=== PATIENT | female | born 1955 | race Caucasian/White ===

== ENCOUNTER 2023-02-02 06:04 | Day surgery (SDC) | payer BC, MEDICARE ==
[2023-01-26 16:56] LABS: BASOPHILS # (AUTO) 0.1 X10'3 (0-0.2); BASOPHILS % (AUTO) 0.8 % (0-1); EOSINOPHILS # (AUTO) 0.2 X10'3 (0-0.9); EOSINOPHILS % (AUTO) 2.9 % (0-6); LYMPHOCYTES # (AUTO) 1.5 X10'3 (1.1-4.8); LYMPHOCYTES % (AUTO) 23.1 % (21-51); MEAN CORPUSCULAR HEMOGLOBIN 29.4 PG (27.0-31.0); MEAN CORPUSCULAR HGB CONC 32.9 g/dL (33.0-36.5); MEAN CORPUSCULAR VOLUME 89.4 FL (78-98); MEAN PLATELET VOLUME 8.9 FL (7.4-10.4); MONOCYTES # (AUTO) 0.7 X10'3 (0-0.9); MONOCYTES % (AUTO) 10.4 % (2-12); NEUTROPHILS % (AUTO) 62.8 % (42-75); PRE OP HEMATOCRIT 37.2 % (35.0-45.0); PRE OP HEMOGLOBIN 12.2 g/dL (12.0-16.0); PRE OP PLATELET COUNT 203 X10'3 (140-440); RED BLOOD COUNT 4.16 X10'6 (4.20-5.60); RED CELL DISTRIBUTION WIDTH 14.4 % (11.5-14.5)
[2023-01-26 17:14] LABS: ALBUMIN 3.4 G/DL (3.4-5.0); ALBUMIN/GLOBULIN RATIO 0.9 (1.1-1.5); ALKALINE PHOSPHATASE 107 IU/L (46-116); BLOOD UREA NITROGEN 18 MG/DL (7-18); BUN/CREATININE RATIO 20.9 (10.0-20.0); CALCIUM 9.4 MG/DL (8.5-10.1); CHLORIDE 103 MMOL/L (99-107); CREATININE 0.86 MG/DL (0.40-0.90); PRE OP ALT 23 U/L (30-65); PRE OP ANION GAP 8 (8-16); PRE OP AST 26 U/L (10-37); PRE OP BILIRUB, TOTAL 0.5 MG/DL (0.0-1.0); PRE OP GLUCOSE 88 MG/DL (70-104); PRE OP SODIUM 137 MMOL/L (135-145); TOTAL CARBON DIOXIDE 26.3 MMOL/L (24-32); TOTAL PROTEIN 7.3 G/DL (6.4-8.2); eGFR 66 ML/MIN
[2023-02-02] VITALS (10 sets, daily range): BP systolic 83–125; BP diastolic 37–68; PULSE 59–68; RESP 11–18; TEMP 97.7; O2SAT 96–99
[~2023-02-02] VITALS: Ht 162.6 cm; Wt 105.2 kg
[~2023-02-02 06:04] MED LIST: APIX5TAB3 PO; ASCO500C17 PO; CHOL500050 PO; DOCUMENT DATE & TIME OF BETA-BLOCKER PO ONE; HYDR12.55 PO; INDLA80C PO; LISI10TA27 PO; ZINC50CA2 PO; [UNRECOGNIZED DRUG - CODE] PO; clindamycin 600mg/D5W 50ml 50 ML IV ONE; famotidine 20mg tablet PO ONE; ringers solution, lacted 1,000 ML IV SCH
[2023-02-02] MEDS ORDERED: LIDOcaine 0.5% (5mg/ml) 50ml vial ONE (07:28)
[2023-02-02] MEDS ORDERED: fentaNYL/PF 50MCG/1 ML 2ML syringe ONE (08:24)
[2023-02-02] MEDS ORDERED: midazolam 1 mg/ML 2ml injection ONE (08:25)
[2023-02-02] MEDS ORDERED: BUPIVAcaine/PF 2.5mg/ml (0.25%) 10ml vial IJ ONE (08:30)
[2023-02-02] MEDS ORDERED: BUPIVAcaine/PF 2.5 mg/ml (0.25%) 30ml vial ONE (08:42)
--- NOTE | 2023-02-02 08:50 | NUR ---
PT ARRIVED TO [facility] VIA [facility] ACCOMPANIED BY DR. SERRA-ANESTHESIA REPORT GIVEN, PT AWAKE AND ALERT, DENIES PAIN, VSS, DRSG TO LEFT HAND-CDI WITH FINGERS PINK AND WARM.
--- NOTE | 2023-02-02 10:50 | NUR ---
PT DOING WELL, VSS, DENIES PAIN, PT UP AND GETTING DRESSED, SURGICAL HAND DRSG-CDI, FINGERS PINK AND WARM, D/C INSTRUCTIONS GIVEN-ALL QUESTIONS ANSWERED, PT TAKEN WITH ALL BELONGINGS TO VEHICLE FOR TRANSPORT HOME.
== END 2023-02-02 10:50 | disposition home or self-care (01) ==
LOC: PAS 06:04
PROVIDERS: ATTEND Orthopaedic Surgery Hand Surgery
DX: G56.02 Carpal tunnel syndrome, left upper limb (principal); M06.9 Rheumatoid arthritis, unspecified; M47.816 Spondylosis without myelopathy or radiculopathy, lumbar region; D64.9 Anemia, unspecified; I48.91 Unspecified atrial fibrillation; I10 Essential (primary) hypertension; G89.29 Other chronic pain; E66.9 Obesity, unspecified; Z68.38 Body mass index [BMI] 38.0-38.9, adult; F10.91 Alcohol use, unspecified, in remission; Z96.653 Presence of artificial knee joint, bilateral; Z98.84 Bariatric surgery status; Z79.899 Other long term (current) drug therapy; Z88.0 Allergy status to penicillin; Z82.49 Family history of ischemic heart disease and other diseases of the circulatory system
CPT/HCPCS: 36415; 64721; 80053; 82948; 85025; J2250; J3010; J3490; J7030; J7120; Z7506; Z7512; A4215; A6449

== ENCOUNTER 2023-07-02 15:07 | Emergency (ER) | payer BC, MEDICARE ==
[~2023-07-02] VITALS: Ht 162.6 cm; Wt 104.5 kg
[~2023-07-02 15:07] MED LIST changes: -DOCUMENT DATE & TIME OF BETA-BLOCKER PO ONE; -clindamycin 600mg/D5W 50ml 50 ML IV ONE; -famotidine 20mg tablet PO ONE; -ringers solution, lacted 1,000 ML IV SCH
[2023-07-02] MEDS: oxyCODONE/APAP 10/325mg tablet PO ONE (16:55)
[2023-07-02] MEDS ORDERED: OXYC-145 PO ×2 (17:22→17:49)
[2023-07-02] MEDS: orphenadrine citrate 60mg/2ml inj. IM ONE (17:55)
[2023-07-02 18:10] VITALS: BP 115/78; PULSE 77; RESP 16; TEMP 98.7; O2SAT 98
== END 2023-07-02 18:11 | disposition home or self-care (01) ==
LOC: ER 15:07
DX: S72.111A Displaced fracture of greater trochanter of right femur, initial encounter for closed fracture (principal); Z88.0 Allergy status to penicillin; Z88.1 Allergy status to other antibiotic agents; Z88.8 Allergy status to other drugs, medicaments and biological substances; Z79.899 Other long term (current) drug therapy; W19.XXXA Unspecified fall, initial encounter; Y93.89 Activity, other specified; Y92.89 Other specified places as the place of occurrence of the external cause; Y99.8 Other external cause status
CPT/HCPCS: 72100; 73502; 96372; 99284; J2360